=== PATIENT | male | born 1960 | race Caucasian/White ===

== ENCOUNTER 2018-08-20 08:52 | Day surgery (SDC) | payer OTHER ==
[~2018-08-20 08:52] MED LIST: CEFAZOLIN 1 GM/D5W RTU 1 GM/50 ML RTUPB IV PRN
[2018-08-20] MEDS ORDERED: MIDAZOLAM 2 MG/2 ML INJ ONE (09:36)
[2018-08-20] MEDS ORDERED: ONDANSETRON HCL INJ/PF 4 MG/2 ML SDV ONE (09:36)
[2018-08-20] MEDS ORDERED: FENTANYL CITRATE INJ/PF 100 MCG/2 ML AMPUL ONE ×2 (09:36→09:39)
[2018-08-20] MEDS ORDERED: PROPOFOL INJ 200 MG/20 ML VIAL IV ONE (09:37)
[2018-08-20] MEDS ORDERED: BUPIVACAINE HCL 0.5 % INJ/PF 30 ML SDV ONE (09:52)
[2018-08-20] MEDS ORDERED: LIDOCAINE 2% INJ (20 MG/ML) 20 ML MDV ONE (09:52)
[2018-08-20] MEDS: BACITRACIN INJ 50,000 UNIT VIAL ONE ×2 (10:58)
[2018-08-20] MEDS: NORMAL SALINE INJ/PF 0.9% 10 ML SDV ONE ×2 (10:58)
[2018-08-20] MEDS: POLYMYXIN B SULFATE INJ 500000 UNIT VIAL ONE ×2 (10:58)
[2018-08-20] MEDS: BUPIVACAINE INJ/PF LIPOSOME/PF 266 MG/20 ML SDV ONE ×2 (11:38)
--- NOTE | 2018-08-20 13:07 | RADIOLOGY REPORT (SQ) ---
EXAM DESCRIPTION: FOOT LEFT 2 VIEWS; NO CHG FLUORO COMPLETED DATE/TIME: 08/20/2018 12:16 pm REASON FOR STUDY: LT FOOT HARTMAN BUNIONECTOMY 1ST TOE, TAILOR BUNIONECTOMY 5TH TOE M20.22 HALLUX RI GIDUS, LEFT FOOT M20.42 OTHER HAMMER TOE(S) (ACQUIRED), LEFT FOOT COMPARISON: None. FLUOROSCOPY TIME: 5 seconds 2 digital C-arm images saved to PACS. TECHNIQUE: Intra-operative images acquired during surgical procedure to evaluate progress. NUMBER OF IMAGES: 2 digital C-arm images LIMITATIONS: None. FINDINGS: Bunion corrective surgery at the 1st metatarsophalangeal joint with prosthesis. Correctiv e osteotomy 5th toe proximal phalanx near the interphalangeal joint. Please see the operative report for further details IMPRESSION: IMAGE(S) OBTAINED DURING PROCEDURE. COMMENT: Quality ID [id number]: Final reports for procedures using fluoroscopy that document radiation exp osure indices, or exposure time and number of fluorographic images (if radiation exposure indices are not available) Please consult full operative report of the attending physician for description of the procedure. TECHNICAL DOCUMENTATION: JOB ID: [id number] [employer]- All Rights Reserved Reading location - IP/workstation name: [facility]
--- NOTE | 2018-08-20 13:07 | RADIOLOGY REPORT (SQ) ---
EXAM DESCRIPTION: FOOT LEFT 2 VIEWS; NO CHG FLUORO COMPLETED DATE/TIME: 08/20/2018 12:16 pm REASON FOR STUDY: LT FOOT HARTMAN BUNIONECTOMY 1ST TOE, TAILOR BUNIONECTOMY 5TH TOE M20.22 HALLUX RI GIDUS, LEFT FOOT M20.42 OTHER HAMMER TOE(S) (ACQUIRED), LEFT FOOT COMPARISON: None. FLUOROSCOPY TIME: 5 seconds 2 digital C-arm images saved to PACS. TECHNIQUE: Intra-operative images acquired during surgical procedure to evaluate progress. NUMBER OF IMAGES: 2 digital C-arm images LIMITATIONS: None. FINDINGS: Bunion corrective surgery at the 1st metatarsophalangeal joint with prosthesis. Correctiv e osteotomy 5th toe proximal phalanx near the interphalangeal joint. Please see the operative report for further details IMPRESSION: IMAGE(S) OBTAINED DURING PROCEDURE. COMMENT: Quality ID [id number]: Final reports for procedures using fluoroscopy that document radiation exp osure indices, or exposure time and number of fluorographic images (if radiation exposure indices are not available) Please consult full operative report of the attending physician for description of the procedure. TECHNICAL DOCUMENTATION: JOB ID: [id number] [employer]- All Rights Reserved Reading location - IP/workstation name: [facility]
--- NOTE | 2018-08-20 13:13 | SURGICARE DISCHARGE SUMMARY E ---
[facility] Discharge Summary NAME: MARTI RODRIGUEZ AGE: 58Y ADMITTED: 08/20/2018 DISCHARGED: 08/20/2018 POSTOPERATIVE DIAGNOSIS: 1. Degenerative joint disease first metatarsophalangeal joint. 2. Left foot hammer toe. 3. Tailor bunion on the 5th MTP joint, left foot. PROCEDURE PERFORMED: 1. Cooney bunionectomy with double-stem and Wen implant. 2. Metatarsal ostectomy of the fifth metatarsal. 3. Hammer toe operation; all of the left foot. On 08/20/2018 the patient was admitted to [facility] with the above procedure performed. The patient tolerated surgery and anesthesia well and was later discharged from [facility] with prescriptions for postoperative pain with Dilaudid 4 mg, he was given Phenergan for nausea, and cephalexin for antibiotic prophylaxis for 5 days. Patient was given a postoperative surgical shoe, postoperative instructions to limit weightbearing, rest, ice, and elevation for the next several days, and was given a postoperative appointment for 1 week. DICTATING PHYSICIAN: IVAN CAPUTO DPM [id number] PHY#: [id number] ID: [id number] JOB#: [id number] ACCT: [id number] cc:IVAN CAPUTO DPM > MTDD
--- NOTE | 2018-08-21 07:45 | SURGICARE OPERATIVE REPORT E ---
[facility] Operative Report NAME: MARTI RODRIGUEZ AGE: 58Y DATE OF SURGERY: 08/20/2018 ROOM: PREOPERATIVE DIAGNOSES: 1. Degenerative joint disease of the first metatarsophalangeal joint, left foot. 2. Hammertoe of the left foot. 3. Tailor bunion of the left foot. PROCEDURES PERFORMED: 1. Cooney bunionectomy with insertion of double-stem Wen implant first MTP joint left foot. 2. Metatarsal ostectomy of the fifth metatarsal head left foot. 3. Hammertoe operation of the fifth toe left foot. SURGEON: IVAN CAPUTO DPM THEOLOGY TEACHER: CISCO ROWLAND DPM DESCRIPTION OF PROCEDURE: On 08/20/2018, the patient was admitted to [facility] with complaints of painful left foot. The patient was taken to the operating room where following induction of intravenous sedation and regional local anesthesia, the patient's left foot and leg were prepped and draped in the usual sterile manner. Tourniquet was placed on the proximal ankle malleoli. Esmarch was applied and tourniquet was inflated to the level of 250 mmHg for hemostasis. Esmarch was removed and the following procedure was performed: Cooney bunionectomy with insertion of Wen double-stem implant. Attention was directed to the dorsal aspect of the patient's first metatarsophalangeal joint where a 5 cm curvilinear incision was placed medial to the long extensor tendon. It was deepened through the subcutaneous tissue and superficial fascia. All bleeding vessels were clamped, ligated, and bovied as necessary for hemostasis. The long extensor tendon was identified, undermined, and retracted laterally for preservation. Incision was made in the capsular periosteal structures in a similar fashion as the radial skin incision. Capsular and periosteal structures were freed from the osseous attachments, retracted medially and laterally for preservation. Bringing into view the first metatarsophalangeal joint, the first metatarsal head was noted to be completely void of any articular cartilage. The base of the proximal phalanx likewise was approximately 80% eroded of articular cartilage and it was felt that the implant arthroplasty would be an appropriate procedure at this time. At that time, utilizing sagittal saw, the base of the proximal phalanx was osteotomized 1cm distal to the base, in a transverse fashion. The base was removed. The head of the first metatarsal was likewise osteotomized removing approximately 2 mm wedge of bone, creating a flat surface for the grommet. At that time, utilizing a [employer] rasp, the metatarsal and phalangeal canals were then reamed to accept the proximal and distal stems and implant. Using sizers, a 3-0 sizer was noted to be appropriate size. Fluroscopic studies were obtained throughout the procedure to verify sizing and placement of the implant. At that time all sharp osseous edges were rasped smooth. The area was then flushed with copious amounts of antibiotic solution and inspected for any soft tissue or osseous debris with none being noted. The grommets were inserted first and lightly tamped into place. The implant, a 3S, was then inserted. Range of motion was checked and noted to be excellent. It was felt that correction was adequate at this time. The capsular and periosteal structures were then coapted and maintained with simple interrupted suture of 3-0 Vicryl. The subcutaneous tissue was then coapted and maintained with simple interrupted suture of 4-0 Vicryl. Next procedure was ostectomy of the fifth metatarsal left foot. Attention was directed to the dorsal aspect of the patient's fifth metatarsophalangeal joint where a 3 cm linear incision was placed over the lateral aspect of the fifth metatarsal head that was deep into the subcutaneous tissue and superficial fascia. All bleeding vessels were clamped, ligated, and bovied as necessary for hemostasis. Incision was made in the capsular periosteal structures and a similar fascial skin incision were retracted laterally for preservation, thus bringing in view the hypertrophied lateral aspect of the fifth metatarsal head. At that time, utilizing a sagittal saw, the lateral aspect of the fifth metatarsal head was osteotomized dorsal to plantar removing an approximately 3 mm wedge of bone. Utilizing a power rasp, all sharp osseous edges were rasped smooth. The area was flushed with copious amounts of sterile antibiotic solution and inspected for any soft tissue or osseous debris with none being noted. The capsular and periosteal structure was then coapted and maintained with simple interrupted suture of 3-0 Vicryl. The subcutaneous tissue was coapted and maintained with simple interrupted suture of 4-0 Vicryl. Attention was directed to the dorsal aspect of the patient's fifth toe where a 3 cm linear incision was placed over the proximal interphalangeal joint, which was deep in the subcutaneous tissue and superficial fascia. All bleeding vessels were clamped, ligated, and bovied as necessary for hemostasis. The longus extensor tendon was identified. It was tenotomized in transverse fashion at the level of the PIP joint and retracted proximally for preservation. The lateral ligaments were sharply incised, thus bringing in view the hypertrophied head of the proximal phalanx. Utilizing a sagittal saw, it was osteotomized proximal to the subcuticular surface, removing approximately a 7 mm wedge of bone. The plantar plate was sharply dissected and removed from the wound en toto. The area was flushed with copious amounts of sterile antibiotic solution and inspected for any soft tissue or osseous debris with none being noted. It was felt that there was no rasping required on the proximal phalanx stump. At that time, the long extensor tendon was then sutured into the created space and sutured to the flexor tendon. The dorsal aspect of the extensor tendon on the middle phalanx was then sutured dorsally to the remaining portion of the extensor tendon. The subcutaneous tissue was coapted and maintained with simple interrupted suture of 4-0 Vicryl. At that time, Exparel was injected perisurgically on all the wounds and then the wounds were then coapted and maintained with interrupted horizontal mattress suture of 5-0 nylon. Sterile dressing consisting of Matheus silk, 4 x 4s, Elmer, Kerlix, and Coban was applied to the patient's left foot. Tourniquet was properly deflated. Capillary filling time was noted to be instantaneous to all digits. The patient appeared to tolerate surgery and anesthesia well and left the OR in fair condition with all vital signs stable and was taken to the recovery room where further monitored by Anesthesia. DICTATING PHYSICIAN: IVAN CAPUTO DPM [id number] PHY#: [id number] ID: [id number] JOB#: [id number] ACCT: [id number] cc:IVAN CAPUTO DPM > MTDD
== END 2018-08-20 13:10 | disposition home or self-care (01) ==
LOC: SC 08:52
PROVIDERS: ATTEND Preventive Medicine Undersea and Hyperbaric Medicine
DX: M20.22 Hallux rigidus, left foot (principal); M20.42 Other hammer toe(s) (acquired), left foot; M21.622 Bunionette of left foot; M19.072 Primary osteoarthritis, left ankle and foot; M19.90 Unspecified osteoarthritis, unspecified site; Z79.1 Long term (current) use of non-steroidal anti-inflammatories (NSAID)
CPT/HCPCS: 73620; 28292; 28285; 28110; C1776; J2250; J3490 ×5; J0690; J3010; J2405; J2704; C9290; 01480